=== PATIENT | female | born 1980 | race Two or more races ===

== ENCOUNTER 2017-04-27 10:06 | Outpatient (CLI) | payer OTHER ==
[~2017-04-27 10:06] MED LIST: LOSARTAN-HCTZ1 EAC1 PO
== END 2017-04-27 10:11 | disposition home or self-care (01) ==
LOC: LAB 10:06
DX: I10 Essential (primary) hypertension (principal); E11.9 Type 2 diabetes mellitus without complications; E03.8 Other specified hypothyroidism; E78.2 Mixed hyperlipidemia

== ENCOUNTER 2017-05-26 12:47 | Outpatient (CLI) | payer OTHER | END 2017-05-26 16:52 | disposition home or self-care (01) | LOC: RAD 12:47 | DX: M12.9 Arthropathy, unspecified (principal); M19.90 Unspecified osteoarthritis, unspecified site ==

== ENCOUNTER 2020-01-22 07:21 | Outpatient (CLI) | payer OTHER | END 2020-01-22 07:29 | disposition home or self-care (01) | LOC: RAD 07:21 | PROVIDERS: ATTEND Physical Medicine & Rehabilitation | DX: M51.34 Other intervertebral disc degeneration, thoracic region (principal); M62.830 Muscle spasm of back; M54.2 Cervicalgia ==

== ENCOUNTER 2022-02-07 11:32 | Emergency (ER) | payer OTHER ==
[~2022-02-07] VITALS: Ht 160 cm; Wt 108.4 kg
[2022-02-07] MEDS ORDERED: NORVASC2.5 M1 PO (11:53)
[2022-02-07] MEDS ORDERED: AVAPRO75 MG PO (11:54)
[2022-02-07] MEDS ORDERED: KETO10TA2 PO (14:06)
== END 2022-02-07 14:10 | disposition home or self-care (01) ==
LOC: ER 11:32
DX: I10 Essential (primary) hypertension (principal); R73.03 Prediabetes; Z88.0 Allergy status to penicillin

== ENCOUNTER → 2024-04-21 11:22 | Outpatient (CLI) | payer OTHER ==
[~2024-04-21 11:22] MED LIST changes: +AVAPRO75 MG PO; +KETO10TA2 PO; +NORVASC2.5 M1 PO
[2024-04-21 13:19] LABS: ob POSITIVE (NEGATIVE)
== END | disposition home or self-care (01) ==
LOC: LAB 11:22
PROVIDERS: ATTEND Internal Medicine Cardiovascular Disease
DX: I10 Essential (primary) hypertension (principal); E11.9 Type 2 diabetes mellitus without complications; E03.9 Hypothyroidism, unspecified; E78.2 Mixed hyperlipidemia; D64.0 Hereditary sideroblastic anemia; Z12.11 Encounter for screening for malignant neoplasm of colon; E55.9 Vitamin D deficiency, unspecified; M81.0 Age-related osteoporosis without current pathological fracture

== ENCOUNTER 2024-05-05 11:42 | Outpatient (CLI) | payer OTHER | END 2024-05-05 11:53 | disposition home or self-care (01) | LOC: TOM 11:42 | PROVIDERS: ATTEND Internal Medicine Cardiovascular Disease | DX: J44.9 Chronic obstructive pulmonary disease, unspecified (principal); R07.9 Chest pain, unspecified ==

== ENCOUNTER 2024-08-02 10:20 | Outpatient (CLI) | payer OTHER | END 2024-08-02 10:30 | disposition home or self-care (01) | LOC: LAB 10:20 | PROVIDERS: ATTEND Internal Medicine Pulmonary Disease | DX: A15.0 Tuberculosis of lung (principal); B39.4 Histoplasmosis capsulati, unspecified ==

== ENCOUNTER 2024-08-04 08:15 | Outpatient (CLI) | payer OTHER | END 2024-08-04 08:28 | disposition home or self-care (01) | LOC: TOM 08:15 | PROVIDERS: ATTEND Internal Medicine Cardiovascular Disease | DX: D64.0 Hereditary sideroblastic anemia (principal); Z12.11 Encounter for screening for malignant neoplasm of colon; R31.9 Hematuria, unspecified; N83.209 Unspecified ovarian cyst, unspecified side ==

== ENCOUNTER 2024-11-01 07:30 | Outpatient (CLI) | payer OTHER ==
[~2024-11-01 07:30] MED LIST changes: +METAXALONE800 MG PO
== END 2024-11-01 07:31 | disposition home or self-care (01) ==
LOC: NUCLEAR 07:30
PROVIDERS: ATTEND Internal Medicine Pulmonary Disease
DX: R91.1 Solitary pulmonary nodule (principal)